=== PATIENT | female | born 1950 | race Caucasian/White ===

== ENCOUNTER → 2018-01-30 07:08 | Outpatient (CLI) | payer MEDICARE ==
[~2018-01-30 07:08] MED LIST: ASPIRIN EC81 M1 PO; BACTRIM DS TABL1 TAB PO; CALCIUM 600 +1 EAC3 PO; EZFE 200200 MG PO; HYDROCODON-ACE1 EAC7 PO; IMITREX100 MG PO; LIPITOR40 MG PO; SYNTHROID88 MCG PO; TOPAMAX25 MG PO; ZOLOFT100 MG PO
[2018-03-08 07:55] VITALS: BMI 24.5
== END | disposition home or self-care (01) ==
LOC: D.CT 07:08
DX: C18.9 Malignant neoplasm of colon, unspecified (principal)

== ENCOUNTER 2018-02-06 07:20 | Inpatient (IN) | payer MEDICARE ==
[2018-02-03 15:32] LABS: BASOPHILS 0.5 % (0-2); EOSINOPHILS 1.3 % (0-7); HEMATOCRIT 39.8 % (36.0-48.0); HEMOGLOBIN 13.3 g/dL (12-16); IMMATURE GRANULOCYTES 0.2 % (0-5); LYMPHOCYTES 35.6 % (15-50); MCH 31.3 pg (26.0-34.0); MCHC 33.4 g/dL (31.0-37.0); MCV 93.6 fL (80.0-100.0); MEAN PLATELET VOLUME 9.2 fL (7.4-10.4); MONOCYTES 8.8 % (2-11); NEUTROPHILS 53.6 % (40-80); PLATELET COUNT 219 10x3/uL (130-400); RBC 4.25 10x6/uL (4.00-5.40); RDW 12.1 % (11.5-14.5); WBC 5.6 10x3/uL (4.8-10.8)
[2018-02-03 15:43] LABS: CALC OSMOLALITY 277 mosm/kg (275-300); CALCIUM 8.4 mg/dL (8.5-10.1); CARBON DIOXIDE 28.5 mmol/L (21.0-32.0); CHLORIDE - SERUM 106 mmol/L (98-107); CREATININE - SERUM 0.6 mg/dL (0.6-1.3); GLUCOSE 92 mg/dL (74-106); POTASSIUM - SERUM 3.8 mmol/L (3.5-5.1); SODIUM 140 mmol/L (136-145); UREA NITROGEN 11 mg/dL (7-18); eGFR NON AFRICAN AMERICAN > 90 mL/min (90-120)
[2018-02-03 15:47] LABS: APTT 27.9 SECONDS (22.8-39.4); INR 0.99 (0.85-1.17); PROTIME 12.7 SECONDS (11.6-15.0)
[~2018-02-06] VITALS: Ht 165.1 cm; Wt 68.9 kg
--- NOTE | ~2018-02-06 | OP ---
PATIENT NAME: JOEY VICK MEDICAL RECORD: [id number] :52 LOCATION:D[id number] ADMISSION DATE:02/06/18 SURGEON: LAURA DANGELO MD DATE OF OPERATION: 02/06/2018 SURGEON: Laura Dangelo MD (JJ) ACCELERATOR TECHNICIAN: Margaret Last APRN PREOPERATIVE DIAGNOSIS: Colon cancer. POSTOPERATIVE DIAGNOSIS: Colon cancer. PROCEDURES PERFORMED: Hand-assisted laparoscopic right hemicolectomy and laparoscopic cholecystectomy. ANESTHESIA: General. COMPLICATIONS: None. SPECIMENS: Right colon, terminal ileum, and gallbladder. ESTIMATED BLOOD LOSS: 250 cc. WOUND CLASS: Clean/contaminated. OPERATIVE COURSE: After consent was obtained, the patient was taken to the operating room and placed in the supine position on the operating table. Next, general anesthesia was given via endotracheal intubation after time-out was performed to confirm the correct patient and procedure. The abdomen was prepped and draped in typical sterile fashion. Local anesthetic was injected just above the umbilicus. A stab incision was made with #11-blade scalpel. Using a 5-mm bladeless optical trocar, the abdomen was entered under direct laparoscopic vision. Adequate pneumoperitoneum was achieved. The abdominal cavity was inspected. No evidence of bowel injury. No evidence of bleeding. At this time, two additional 12-mm trocars were placed into the lower midline and a 5-mm trocar was placed in the right lower quadrant. The right colon was mobilized. The white line of Toldt was taken with the Harmonic scalpel. This dissection was continued up to the level of the hepatic flexure and the mid transverse colon. The omentum was taken off of the transverse mesocolon, from the midpoint to the hepatic flexure. Once we had full and complete mobilization of the hepatic flexure, during the dissection, the gallbladder was densely adherent to the transverse colon. During the dissection, there was a small cholecystotomy made in the gallbladder. At this time, it was decided to perform a laparoscopic cholecystectomy. The fundus of the gallbladder was grasped and retracted cephalad. The infundibulum was retracted laterally. The peritoneum was incised using electrocautery. Blunt dissection was performed until the critical view was obtained with cystic duct lateral, cystic artery medial, and liver in the posterior window. Two clips were placed in the proximal cystic artery and one clip distal. Three clips were placed in the proximal cystic duct and one clip distal. The duct and artery were then transected with laparoscopic Metzenbaum scissors. Main portion of the gallbladder was dissected off the liver bed using the Harmonic scalpel. The gallbladder was removed through the 12-mm trocar and sent for permanent pathology. At this time, the 12-mm trocar OPERATIVE REPORT [id number] JOEY VICK was removed. A lower midline incision was made. Skin incision was made with #15 blade scalpel. Dissection was continued to the level of the fascia using electrocautery. The fascia was opened using electrocautery. An Marcelino retractor was placed. A GelPort was placed. The remaining portion of the colon was again mobilized using hand assisted. The mesentery was freed along the hepatic flexure. At this time, the GelPort was removed. The right colon and terminal ileum were extracorporealized. The ileocolic vessels were identified and taken with firing of the linear WINTER cutting stapler. The right middle colic vessels were identified and taken with second firing of the WINTER stapler. Next, a [id number] ileocolonic anastomosis was performed. Enterotomies were made using the Harmonic scalpel. The common enterotomy was created using firing of the 75-mm linear WINTER stapler. The common enterotomy was closed with second firing of the linear WINTER stapler. Mesentery was taken with Harmonic scalpel. The specimen was passed off the field and sent for permanent pathology. The staple line was imbricated using 3-0 silk suture. The mesentery was reapproximated using 3-0 silk suture. The anastomosis was returned to the right lower quadrant. The GelPort was placed. The abdomen was reinflated. The abdomen was copiously irrigated and suctioned. Careful hemostasis was obtained. The abdominal cavity was inspected. There was no evidence of bowel injury, no evidence of bleeding, and no evidence of bile leak. At this time, all remaining instruments were removed. The abdomen was desufflated. Trocars were removed. The GelPort was removed. At this time, all members of the surgical team changed gown and gloves. The Ioban dressing was removed. The fascia was closed with a #1 looped PDS. Skin was closed with ashleigh. The trocar sites were closed with 4-0 Monocryl, Mastisol, and Steri-Strips. At the end of the case, all needle and instrument counts were correct. No complications occurred. The patient was extubated and transferred to the PACU in stable condition. TRANSINT:[id number] Voice Confirmation ID: [id number] DOCUMENT ID: [id number] LAURA DANGELO MD at 1602 CC: [id number] DICTATION DATE: 02/06/18 1237 SACK KEEPER: 02/06/18 1351 ADM IN [facility] [id number] [place] [address]
--- NOTE | ~2018-02-06 | MORECARE ---
CASE MANAGEMENT DISCHARGE SUMMARY PATIENT: JOEY VICK UNIT: [id number] ADM DATE: 02/06/18 AGE: 67 : 52 SEX: F ROOM/BED: D.2203 AUTHOR: CASE, TYPO MACHINE OPERATOR PHYSICIAN: REFERRING PHYSICIAN: LAURA DANGELO MD DATE OF SERVICE: 02/06/18 Discharge Plan Patient Name[facility] [facility] 1950 Planned Disposition: Home Anticipated Discharge Date: 02/10/18 Discharge Date: Expected LOS: 4 Initial Reviewer: [email or web address] Initial Review Date: 02/10/2018 Generated: 02/10/18 12:07 pm DCPIA - Discharge Planning Initial Assessment Updated by [email or web address]: Elicia Lal on 02/10/18 11:07 am * Is the patient Alert and Oriented? Yes * How many steps to enterexit or inside your home? * PCP Davi * Pharmacy [facility] * Preadmission Environment Home with Family * ADLs Independent * List name and contact numbers for known caregivers / representatives who currently or will assist patient after discharge: leona Herzog, * Community resources currently utilized None * Additional services required to return to the preadmission environment? No * Can the patient safely return to the preadmission environment? Yes * Has this patient been hospitalized within the prior 30 days at any hospital? No Coverage Notice Reviewer: [email or web address] - Elicia Lal Notice Issued Date-Time: 02/10/2018 11:02 Notice Type: IM Discharge Notice Notice Delivered To: Patient Relationship to Patient: Self Loan Originator Name: Delivery Method: HAND - Hand Delivered Jamila Days: Prior Verbal Notification: Recipient Understood Notice: Yes Recipient Signature: Yes Med Rec Note Co-signed by Attending: Coverage Notice Comment: Patient Name: JOEY VICK Page [phone] All edits/amendments must be made on the electronic document DICTATION DATE: 02/10/181106 TRANSPORTATION SOLUTIONS MANAGER: 02/10/181106 RPT#: [id number] DC DATE: STATUS: ADM IN [facility] [address] [place] [address] END OF REPORT
[~2018-02-06 07:20] MED LIST changes: -ASPIRIN EC81 M1 PO; -BACTRIM DS TABL1 TAB PO; -CALCIUM 600 +1 EAC3 PO; -EZFE 200200 MG PO; -HYDROCODON-ACE1 EAC7 PO; -IMITREX100 MG PO
[2018-02-06 08:01] VITALS: BP 135/75; BMI 25.3
[2018-02-06 16:10] VITALS: BP 144/81; BMI 25.3
[2018-02-06 23:15] VITALS: BP 115/52
[2018-02-07 05:00] VITALS: BP 102/42
[2018-02-07 05:07] LABS: BASOPHILS 0.1 % (0-2); EOSINOPHILS 0 % (0-7); HEMATOCRIT 31.1 % (36.0-48.0); HEMOGLOBIN 10.2 g/dL (12-16); IMMATURE GRANULOCYTES 0.1 % (0-5); LYMPHOCYTES 13.9 % (15-50); MCH 30.6 pg (26.0-34.0); MCHC 32.8 g/dL (31.0-37.0); MCV 93.4 fL (80.0-100.0); MEAN PLATELET VOLUME 8.9 fL (7.4-10.4); MONOCYTES 10.1 % (2-11); NEUTROPHILS 75.8 % (40-80); RBC 3.33 10x6/uL (4.00-5.40); RDW 12.3 % (11.5-14.5); WBC 7.8 10x3/uL (4.8-10.8)
[2018-02-07 05:26] LABS: PLATELET COUNT 172 10x3/uL (130-400)
[2018-02-07 05:37] LABS: ALBUMIN 2.4 g/dL (3.4-5.0); ALKALINE PHOSPHATASE 57 U/L (46-116); ALT (SGPT) 53 U/L (10-68); BILIRUBIN - TOTAL 0.17 mg/dL (0.2-1.3); CALC OSMOLALITY 275 mosm/kg (275-300); CALCIUM 7.8 mg/dL (8.5-10.1); CARBON DIOXIDE 28.5 mmol/L (21.0-32.0); CHLORIDE - SERUM 107 mmol/L (98-107); CREATININE - SERUM 0.7 mg/dL (0.6-1.3); POTASSIUM - SERUM 3.8 mmol/L (3.5-5.1); PROTEIN - SERUM 5.2 g/dL (6.4-8.2); SODIUM 137 mmol/L (136-145); UREA NITROGEN 6 mg/dL (7-18); eGFR NON AFRICAN AMERICAN 89 mL/min (90-120)
[2018-02-07 05:38] LABS: GLUCOSE 163 mg/dL (74-106)
[2018-02-07 08:37] VITALS: BP 94/45
[2018-02-07 10:24] VITALS: Ht 165.1 cm; Wt 68.9 kg
[2018-02-07 12:29] VITALS: BP 105/58
[2018-02-07 16:35] VITALS: BP 104/62
[2018-02-07 21:20] VITALS: BP 132/72
[2018-02-08 00:07] VITALS: BP 129/45
[2018-02-08 04:29] LABS: BASOPHILS 0.1 % (0-2); EOSINOPHILS 0 % (0-7); HEMATOCRIT 29.9 % (36.0-48.0); HEMOGLOBIN 9.7 g/dL (12-16); IMMATURE GRANULOCYTES 0.1 % (0-5); LYMPHOCYTES 14.8 % (15-50); MCH 30.8 pg (26.0-34.0); MCHC 32.4 g/dL (31.0-37.0); MCV 94.9 fL (80.0-100.0); MONOCYTES 8.4 % (2-11); NEUTROPHILS 76.6 % (40-80); PLATELET COUNT 168 10x3/uL (130-400); RBC 3.15 10x6/uL (4.00-5.40); RDW 12.6 % (11.5-14.5); WBC 7.2 10x3/uL (4.8-10.8)
[2018-02-08 04:53] LABS: CALC OSMOLALITY 281 mosm/kg (275-300); CALCIUM 7.9 mg/dL (8.5-10.1); CARBON DIOXIDE 29.4 mmol/L (21.0-32.0); CHLORIDE - SERUM 110 mmol/L (98-107); CREATININE - SERUM 0.7 mg/dL (0.6-1.3); GLUCOSE 137 mg/dL (74-106); POTASSIUM - SERUM 3.7 mmol/L (3.5-5.1); SODIUM 142 mmol/L (136-145); eGFR NON AFRICAN AMERICAN 89 mL/min (90-120)
[2018-02-08 05:05] LABS: UREA NITROGEN 3 mg/dL (7-18)
[2018-02-08 06:12] VITALS: BP 126/59
[2018-02-08 08:48] VITALS: BP 113/55
[2018-02-08 16:20] VITALS: BP 176/57
[2018-02-08 20:42] VITALS: BP 127/53
[2018-02-09 00:22] VITALS: BP 115/50
[2018-02-09 04:32] LABS: BASOPHILS 0.5 % (0-2); EOSINOPHILS 1.5 % (0-7); HEMATOCRIT 28.8 % (36.0-48.0); HEMOGLOBIN 9.5 g/dL (12-16); IMMATURE GRANULOCYTES 0.2 % (0-5); LYMPHOCYTES 23.9 % (15-50); MCH 31.4 pg (26.0-34.0); MEAN PLATELET VOLUME 9.1 fL (7.4-10.4); NEUTROPHILS 63.9 % (40-80); PLATELET COUNT 156 10x3/uL (130-400); RBC 3.03 10x6/uL (4.00-5.40); RDW 12.6 % (11.5-14.5); WBC 6.1 10x3/uL (4.8-10.8)
[2018-02-09 04:51] LABS: CALC OSMOLALITY 283 mosm/kg (275-300); CALCIUM 7.6 mg/dL (8.5-10.1); CARBON DIOXIDE 30.2 mmol/L (21.0-32.0); CHLORIDE - SERUM 110 mmol/L (98-107); CREATININE - SERUM 0.6 mg/dL (0.6-1.3); GLUCOSE 120 mg/dL (74-106); POTASSIUM - SERUM 3.2 mmol/L (3.5-5.1); SODIUM 144 mmol/L (136-145); eGFR NON AFRICAN AMERICAN > 90 mL/min (90-120)
[2018-02-09 04:56] LABS: UREA NITROGEN 2 mg/dL (7-18)
[2018-02-09 06:13] VITALS: BP 130/60
[2018-02-09 08:34] VITALS: BP 133/55
[2018-02-09 12:40] VITALS: BP 132/62
[2018-02-09 16:51] VITALS: BP 107/50
[2018-02-09 20:52] VITALS: BP 116/49
[2018-02-10 00:30] VITALS: BP 172/63
[2018-02-10 04:14] LABS: BASOPHILS 0.3 % (0-2); EOSINOPHILS 5.4 % (0-7); HEMATOCRIT 29.4 % (36.0-48.0); HEMOGLOBIN 9.7 g/dL (12-16); IMMATURE GRANULOCYTES 0.2 % (0-5); LYMPHOCYTES 29.8 % (15-50); MCH 30.9 pg (26.0-34.0); MCV 93.6 fL (80.0-100.0); MONOCYTES 8.4 % (2-11); NEUTROPHILS 55.9 % (40-80); PLATELET COUNT 185 10x3/uL (130-400); RBC 3.14 10x6/uL (4.00-5.40); RDW 12.3 % (11.5-14.5); WBC 6.1 10x3/uL (4.8-10.8)
[2018-02-10 04:28] LABS: CALC OSMOLALITY 278 mosm/kg (275-300); CALCIUM 7.8 mg/dL (8.5-10.1); CARBON DIOXIDE 27.4 mmol/L (21.0-32.0); CHLORIDE - SERUM 108 mmol/L (98-107); CREATININE - SERUM 0.6 mg/dL (0.6-1.3); GLUCOSE 88 mg/dL (74-106); POTASSIUM - SERUM 3.9 mmol/L (3.5-5.1); SODIUM 142 mmol/L (136-145); eGFR NON AFRICAN AMERICAN > 90 mL/min (90-120)
[2018-02-10 04:32] LABS: UREA NITROGEN 5 mg/dL (7-18)
[2018-02-10 06:17] VITALS: BP 106/45
[2018-02-10 08:42] VITALS: BP 131/50
[2018-02-10] MEDS ORDERED: HYDROCODON-ACE1 EAC7 PO (10:18)
[2018-03-07] MEDS ORDERED: IMITREX100 MG PO (09:45)
[2018-03-07] MEDS ORDERED: CALCIUM 600 +1 EAC3 PO (09:46)
[2018-03-07] MEDS ORDERED: ASPIRIN EC81 M1 PO (09:46)
[2018-03-07] MEDS ORDERED: EZFE 200200 MG PO (09:46)
== END 2018-02-10 13:17 | disposition home or self-care (01) | DRG 331 ==
LOC: D.SDCHOLD 07:20 → D.MS 07:20 → D.SDCHOLD 10:00 → D.MS 15:03
PROVIDERS: Anesthesiology; Surgery
PROC: 0DTF0ZZ Resection of Right Large Intestine, Open Approach (ICD-10-PCS; 2018-02-06)
PROC: 0FT44ZZ Resection of Gallbladder, Percutaneous Endoscopic Approach (ICD-10-PCS; principal; 2018-02-06 10:00)
DX: C18.9 Malignant neoplasm of colon, unspecified (principal)

== ENCOUNTER 2018-03-08 05:30 | Day surgery (SDC) | payer MEDICARE ==
[2018-03-07 10:06] LABS: BASOPHILS 0.4 % (0-2); EOSINOPHILS 3.1 % (0-7); HEMATOCRIT 35.3 % (36.0-48.0); HEMOGLOBIN 11.7 g/dL (12-16); IMMATURE GRANULOCYTES 0.2 % (0-5); LYMPHOCYTES 28.9 % (15-50); MCH 30.7 pg (26.0-34.0); MCHC 33.1 g/dL (31.0-37.0); MCV 92.7 fL (80.0-100.0); MEAN PLATELET VOLUME 8.9 fL (7.4-10.4); MONOCYTES 9.2 % (2-11); NEUTROPHILS 58.2 % (40-80); PLATELET COUNT 197 10x3/uL (130-400); RBC 3.81 10x6/uL (4.00-5.40); RDW 12.4 % (11.5-14.5); WBC 5.2 10x3/uL (4.8-10.8)
[2018-03-07 10:17] LABS: CALC OSMOLALITY 281 mosm/kg (275-300); CALCIUM 8.3 mg/dL (8.5-10.1); CARBON DIOXIDE 29.6 mmol/L (21.0-32.0); CHLORIDE - SERUM 109 mmol/L (98-107); CREATININE - SERUM 0.8 mg/dL (0.6-1.3); GLUCOSE 103 mg/dL (74-106); POTASSIUM - SERUM 3.6 mmol/L (3.5-5.1); SODIUM 142 mmol/L (136-145); UREA NITROGEN 11 mg/dL (7-18); eGFR NON AFRICAN AMERICAN 76 mL/min (90-120)
[2018-03-07 10:18] LABS: APTT 27.8 SECONDS (22.8-39.4); INR 0.94 (0.85-1.17); PROTIME 12.2 SECONDS (11.6-15.0)
[~2018-03-08] VITALS: Ht 165.1 cm; Wt 66.7 kg
[~2018-03-08 05:30] MED LIST changes: +ASPIRIN EC81 M1 PO; +CALCIUM 600 +1 EAC3 PO; +EZFE 200200 MG PO; +HYDROCODON-ACE1 EAC7 PO; +IMITREX100 MG PO
[2018-03-08 07:55] VITALS: Ht 165.1 cm; Wt 66.7 kg
[2018-03-08] MEDS ORDERED: HYDROCODON-ACE1 EAC7 PO (09:02)
[2018-03-08] MEDS ORDERED: BACTRIM DS TABL1 TAB PO (09:02)
== END 2018-03-08 10:45 | disposition home or self-care (01) ==
LOC: D.OPS 05:30 → D.PAN 08:00 → D.OPS 08:30
PROVIDERS: Anesthesiology
DX: C18.9 Malignant neoplasm of colon, unspecified (principal); Z01.812 Encounter for preprocedural laboratory examination

== ENCOUNTER → 2018-08-31 17:54 | Outpatient (CLI) | payer MEDICARE ==
[2018-03-08 07:55] VITALS: BMI 24.5
[~2018-08-31 17:54] MED LIST changes: +BACTRIM DS TABL1 TAB PO
== END | disposition home or self-care (01) ==
LOC: D.LABREF 17:54
DX: L72.0 Epidermal cyst (principal)